=== PATIENT | male | born 1930 | race Two or more races ===

== ENCOUNTER 2019-11-26 22:15 | Emergency (ER) | payer SELFPAY ==
[~2019-11-26] VITALS: Ht 165.1 cm; Wt 63.5 kg
[2019-11-26 22:30] VITALS: BP 144/76
--- NOTE | 2019-11-26 22:30 | NUR ---
ED Nurse Note: Pt walked into ED from home accompanied by grandson for c/o R sided groin pain onset approx two weeks ago. Per grandson, pt has been complaining of pain and swelling on and off since onset. Swelling to R groin area noted. Denies any injury or trauma to the area. Pt is aaox4, no cardiac or respiratory distress noted.
[2019-11-26] MEDS ORDERED: PLAVIX75 MG ORAL (22:41)
[2019-11-26] MEDS ORDERED: NORVASC10 MG ORAL (22:41)
[2019-11-26] MEDS ORDERED: LIPITOR40 MG ORAL (22:41)
--- NOTE | 2019-11-26 22:44 | Emergency Room Report ---
History of Present Illness General Chief Complaint: Abdominal Pain Source: Patient, Family Member Present Illness HPI This an 89-year-old male with a history of high blood pressure CVA and hyperlipidemia. He presents with complaint of right abdominal groin pain. Onset for the last 2 to 3 days. Worse with movement and standing up. Sometimes he felt like a mass coming out. Worse when he takes water. Has not seen a doctor for this. No fever chills but no nausea no vomiting. No incontinence of bowel or urine. Pain is 7 out of 10. Worse with movement. Better with rest. Allergies: Coded Allergies: No Known Allergies (Unverified , 11/26/19) COVID-19 Screening Contact w/high risk pt: No Recent Travel to affected area: No Experienced COVID-19 symptoms?: No Patient History Past Medical History: see triage record, old chart reviewed, HTN, CAD, CVA/TIA Past Surgical History: other Pertinent Family History: none Social History: Denies: smoking Immunizations: other Reviewed Nursing Documentation: PMH: Agreed; PSxH: Agreed Nursing Documentation-PMH Hx Cardiac Problems: Yes - bypass of 2 arteries, ischemic heart disease Hx Gastrointestinal Problems: Yes - duodenal ulcer, gi hemorrhage Review of Systems Eye: Denies: eye pain, blurred vision ENT: Denies: ear pain, nose congestion, throat swelling Respiratory: Denies: cough, shortness of breath Cardiovascular: Denies: chest pain, palpitations Gastrointestinal: Reports: abdominal pain; Denies: diarrhea, nausea, vomiting Musculoskeletal: Denies: back pain, joint pain Skin: Denies: rash Neurological: Denies: headache, numbness Endocrine: Denies: increased thirst, increased urine Hematologic/Lymphatic: Denies: easy bruising All Other Systems: negative except mentioned in HPI Physical Exam Vital Signs Date Time Temp Pulse Resp B/P (MAP) Pulse Ox O2 Delivery O2 Flow Rate FiO2 11/26/19 22:29 98.2 83 16 144/76 (98) 98 Room Air Vitals normal Sp02 EP Interpretation: reviewed, normal General Appearance: well appearing, no apparent distress, alert Head: normocephalic, atraumatic Eyes: bilateral eye PERRL, bilateral eye EOMI ENT: hearing grossly normal, normal pharynx Neck: full range of motion, supple, no meningismus Respiratory: chest non-tender, lungs clear, normal breath sounds Cardiovascular #1: regular rate, rhythm, no murmur Gastrointestinal: normal bowel sounds, non tender, no mass, no organomegaly, no bruit, non-distended, other - Right inguinal hernia is reducible. Mild tenderness. Musculoskeletal: back normal, normal range of motion, gait/station normal Psychiatric: mood/affect normal Medical Decision Making Diagnostic Impression: Primary Impression: Inguinal hernia Qualified Codes: K40.90 - Unilateral inguinal hernia, without obstruction or gangrene, not specified as recurrent Additional Impressions: Anemia Qualified Codes: D64.9 - Anemia, unspecified CKD (chronic kidney disease) Qualified Codes: N18.9 - Chronic kidney disease, unspecified ER Course Patient presents with a lump to his right groin area. Finding consistent with inguinal hernia. His other finding on the CT scan appear to be chronic. He has no other complaint. He has no right upper quadrant pain. He has no abdominal pain. Will discharge home. Based on the labs that he brought with him, laboratory findings at baseline. CT/MRI/US Diagnostic Results CT/MRI/US Diagnostic Results : Imaging Test Ordered: CT abdomen pelvis Impression Read by radiologist. Gallbladder dilatation. Constipation. Anasarca. Last Vital Signs Date Time Temp Pulse Resp B/P (MAP) Pulse Ox O2 Delivery O2 Flow Rate FiO2 11/26/19 22:29 98.2 83 16 144/76 (98) 98 Room Air Status: improved Disposition: HOME, SELF-CARE Condition: Stable Scripts Acetaminophen With Codeine (T#3) (TYLENOL #3 TAB*) Y Tab 1 TAB ORAL Q8H PRN for For Pain, #20 TAB Prov: Silvestre De Souza MD 11/26/19 Additional Instructions: Follow-up with your doctor in 7 days. Return if worse. Silvestre De Souza MD November 26, 2019 22:44
[2019-11-26 23:06] LABS: BASOPHILS % (AUTO) 1.4 % (0.0-2.0); HEMATOCRIT 28.1 % (42.0-52.0); HEMOGLOBIN 8.8 G/DL (14.2-18.0); LYMPHOCYTES % (AUTO) 21.3 % (20.0-45.0); MEAN CORPUSCULAR VOLUME 98 FL (80-99); MONOCYTES % (AUTO) 12.2 % (1.0-10.0); NEUTROPHILS % (AUTO) 58.1 % (45.0-75.0); PLATELET COUNT 130 K/UL (150-450); RED BLOOD COUNT 2.87 M/UL (4.70-6.10); RED CELL DISTRIBUTION WIDTH 14.8 % (11.6-14.8); WHITE BLOOD COUNT 6.6 K/UL (4.8-10.8)
--- NOTE | 2019-11-26 23:15 | NUR ---
ED Nurse Note: Unable to obtain urine sample, MARK aware.
[2019-11-26 23:18] LABS: ANION GAP 10 mmol/L (5-15); BLOOD UREA NITROGEN 31 mg/dL (7-18); CARBON DIOXIDE 24 MMOL/L (21-32); CHLORIDE 105 MMOL/L (98-107); CREATININE 2.8 MG/DL (0.55-1.30); POTASSIUM 4.1 MMOL/L (3.5-5.1); SODIUM 139 MMOL/L (136-145)
[2019-11-26 23:23] LABS: ALANINE AMINOTRANSFERASE 24 U/L (12-78); ALBUMIN 3.3 G/DL (3.4-5.0); ALBUMIN/GLOBULIN RATIO 0.8 (1.0-2.7); ALKALINE PHOSPHATASE 101 U/L (46-116); ASPARTATE AMINO TRANSFERASE 21 U/L (15-37); BILIRUBIN,TOTAL 0.4 MG/DL (0.2-1.0)
--- NOTE | 2019-11-26 23:31 | Diagnostic Imaging Report ---
EXAM: CT Abdomen and Pelvis Without Intravenous Contrast CLINICAL HISTORY: ABD PAIN TECHNIQUE: Axial computed tomography images of the abdomen and pelvis without intravenous contrast. CTDI is 4 mGy and DLP is 204 mGy-cm. One or more of the following dose reduction techniques were used: automated exposure control, adjustment of the mA and/or kV according to patient size, use of iterative reconstruction technique. Coronal and sagittal reformatted images were created and reviewed. COMPARISON: No relevant prior studies available. FINDINGS: Lung bases: See below. Pleural space: Bilateral small low-attenuation layering pleural effusions with passive atelectasis, correlate to exclude pneumonia. Loculation on the right could represent an exudative effusion. ABDOMEN: Liver: Unremarkable. Gallbladder and bile ducts: Gallbladder dilation and wall thickening with mild pericholecystic fluid could represent the clinical diagnosis of acute cholecystitis in the proper context. Correlate with presentation. Pancreas: Unremarkable. No ductal dilation. Spleen: Unremarkable. No splenomegaly. Adrenals: Bilateral benign adrenal hyperplasia. Kidneys and ureters: Nonobstructing punctate left nephrolith. Right renal benign subcentimeter cysts requiring no additional follow-up. Stomach and bowel: Colonic diverticulosis without acute diverticulitis. Large colonic fecal burden and small bowel fecal contents, which could be incidental or could represent a manifestation of slow intestinal transit. This could be a cause for pain. PELVIS: Appendix: No findings to suggest acute appendicitis. Bladder: Urinary bladder wall thickening. This could be incidental, correlate clinically to exclude infectious or inflammatory cystitis. No stones. Reproductive: Unremarkable as visualized. ABDOMEN and PELVIS: Intraperitoneal space: Unremarkable. No free air. No significant fluid collection. Bones/joints: Old right greater trochanter avulsion fracture. L3 mild inferior endplate compression fracture of uncertain chronicity, although minimal fat stranding around this finding suggests that there could be a subacute or acute component. Correlate with presentation and physical exam. Severe osteopenia and degenerative spine findings. No dislocation. Soft tissues: Scrotal wall thickening, likely due to edema and anasarca. Correlate to exclude cellulitis. Diffuse anasarca. Vasculature: Unremarkable. No abdominal aortic aneurysm. Lymph nodes: Small bilateral inguinal numerous lymph nodes are probably reactive. Tubes, lines and devices: TAVR. Cardiomegaly. Sternotomy and mediastinal operative findings. Other findings: Severe ASVD. IMPRESSION: 1. L3 mild inferior endplate compression fracture of uncertain chronicity, although minimal fat stranding around this finding suggests that there could be a subacute or acute component. Correlate with presentation and physical exam. 2. Gallbladder dilation and wall thickening with mild pericholecystic fluid could represent the clinical diagnosis of acute cholecystitis in the proper context. Correlate with presentation. 3. Urinary bladder wall thickening. This could be incidental, correlate clinically to exclude infectious or inflammatory cystitis. 4. Large colonic fecal burden and small bowel fecal contents, which could be incidental or could represent a manifestation of slow intestinal transit. This could be a cause for pain. 5. Scrotal wall thickening, likely due to edema and anasarca. Correlate to exclude cellulitis. 6. TAVR. Cardiomegaly. Sternotomy and mediastinal operative findings. 7. Bilateral small low-attenuation layering pleural effusions with passive atelectasis, correlate to exclude pneumonia. Loculation on the right could represent an exudative effusion. 8. Colonic diverticulosis without acute diverticulitis. 9. Old right greater trochanter avulsion fracture.
[2019-11-26] MEDS ORDERED: ACETAMINOPHEN-1 EAC1 ORAL (23:41)
[2019-11-27] VITALS: BP 135/82
--- NOTE | 2019-11-27 | NUR ---
ER DISCHARGE NOTE: Patient is cleared to be discharged per ERMD, pt is aox4, on room air, with stable vital signs. pt was given dc and prescription instructions, pt was able to verbalize understanding, pt id band and iv site removed without complications. pt is able to ambulate with steady gait. pt took all belongings.
== END 2019-11-27 00:06 | disposition home or self-care (01) ==
LOC: EMR 23:00
DX: K40.90 Unilateral inguinal hernia, without obstruction or gangrene, not specified as recurrent (principal); E11.22 Type 2 diabetes mellitus with diabetic chronic kidney disease; I12.9 Hypertensive chronic kidney disease with stage 1 through stage 4 chronic kidney disease, or unspecified chronic kidney disease; N18.9 Chronic kidney disease, unspecified; D63.1 Anemia in chronic kidney disease; Z86.73 Personal history of transient ischemic attack (TIA), and cerebral infarction without residual deficits; E78.5 Hyperlipidemia, unspecified; K59.00 Constipation, unspecified; R60.1 Generalized edema; I51.7 Cardiomegaly; K57.90 Diverticulosis of intestine, part unspecified, without perforation or abscess without bleeding; I70.90 Unspecified atherosclerosis
CPT/HCPCS: 36415; 74176; 80053; 83690; 85025; 99284